=== PATIENT | female | born 1935 | race Caucasian/White ===

== ENCOUNTER 2018-04-03 19:03 | Emergency (ER) | payer BC ==
--- NOTE | 2018-04-03 19:23 | Emergency Department Record ---
History of Present Illness - General Chief Complaint: Fall Injury Stated Complaint: FALL Time Seen by Provider: 04/03/18 19:17 Source: Patient Mode of Arrival: Wheelchair Limitations: No limitations - History of Present Illness Initial Comments: 82 yo female presents to ED for evaluation of pain to the left elbow, left knee , and left upper quadrant.left lower ribs following a trip an fall in a friend' s basement. Patient reports that she was able to stand and ambulate on her own , denies injury to the head, neck, or use of anticoagulation medications. Patient denies focal weakness or numbness symptoms on examination. MD Complaint: Fall Onset/Timin -: Hour(s) Fall From: Standing When Fall Occurred: 1 hour [employer] Fall Witnessed: No Place Fall Occurred: Home Loss of Consciousness: None Prolonged Down Time?: No Symptoms Prior to Fall: None Location - Extremities: Left: Elbow, Knee Severity: Moderate Quality: Aching Context: Tripped/slipped Associated Symptoms: Denies - [place] Coma Scale Eye Response: (4) Open spontaneously Motor Response: (6) Obeys commands Verbal Response: (5) Oriented Krystal Total: 15 - Related Data Home Medications Medication Instructions Recorded Confirmed Last Taken Alendronate Sodium 70 mg PO WEEKLY 04/03/18 04/03/18 Unknown Benazepril/Hydrochlorothiazide 1 each PO DAILY 04/03/18 04/03/18 Unknown [Benazepril-Hctz 10-12.5 mg Tab] Beta-Carotene(A)-Vits C,E/Mins 1 each PO DAILY 04/03/18 04/03/18 Unknown [Vision Vitamins] Calcium Carb/D3/Magnesium/Zinc 1 each PO DAILY 04/03/18 04/03/18 Unknown [Morgan Mag Zinc + D Tablet] Insulin Glargine,Hum.rec.anlog 68 unit SQ QPM 04/03/18 04/03/18 Unknown [Lantus] Isosorbide Mononitrate [Imdur] 30 mg PO DAILY 04/03/18 04/03/18 Unknown Levothyroxine Sodium 50 mcg PO DAILY 04/03/18 04/03/18 Unknown Losartan Potassium [Cozaar] 25 mg PO DAILY 04/03/18 04/03/18 Unknown Lovastatin [Altoprev] 40 mg PO QPM 04/03/18 04/03/18 Unknown Metformin HCl [Glucophage] 850 mg PO TID 04/03/18 04/03/18 Unknown Metoprolol Succinate [Toprol Xl] 25 mg PO DAILY 04/03/18 04/03/18 Unknown Potassium Bicarbonate/Cit AC 25 meq PO DAILY 04/03/18 04/03/18 Unknown [K-Lyte] Quinine Sulfate 324 mg PO QPM 04/03/18 04/03/18 Unknown Saliva Substitute Combo No.9 1,000 ml MM ASDIR 04/03/18 04/03/18 Unknown [Biotene] Previous Rx's Medication Instructions Recorded Hydrocodone/Acetaminophen [[place] 1 each PO Q6H PRN #10 tablet 04/03/18 5-325 Tablet] Allergies Allergy/AdvReac Type Severity Reaction Status Date / Time acetaminophen [From Endocet] Allergy PT UNSURE Verified 04/03/18 19:17 OF REACTION codeine Allergy PT UNSURE Verified 04/03/18 19:17 OF REACTION fenoprofen [From Nalfon] Allergy PT UNSURE Verified 04/03/18 19:17 OF REACTION hydrocodone [From Vicodin] Allergy PT UNSURE Verified 04/03/18 19:17 OF REACTION hydromorphone [From Dilaudid] Allergy PT UNSURE Verified 04/03/18 19:17 OF REACTION morphine Allergy PT UNSURE Verified 04/03/18 19:17 OF REACTION oxycodone [From Endocet] Allergy PT UNSURE Verified 04/03/18 19:17 OF REACTION pentazocine [From Talwin] Allergy PT UNSURE Verified 04/03/18 19:17 OF REACTION sulindac [From [place]] Allergy PT UNSURE Verified 04/03/18 19:17 OF REACTION Travel Screening - Travel/Exposure Within Last 30 Days Have you traveled within the last 30 days?: No - Travel/Exposure Within Last Year Have you traveled outside the [place] in the last year?: No - Additonal Travel Details Have you been exposed to anyone with a communicable illness?: No - Travel Symptoms Symptom Screening: None Review of Systems Constitutional: Denies: Chills, Fever, Malaise, Night sweats Eyes: Denies: Eye discharge, Eye pain ENT: Denies: Congestion, Ear pain, Epistaxis Respiratory: Denies: Cough, Dyspnea Cardiovascular: Denies: Chest pain, Dyspnea on exertion Endocrine: Denies: Fatigue, Heat or cold intolerance Gastrointestinal: Reports: Abdominal pain. Denies: Nausea, Vomiting Genitourinary: Denies: Incontinence, Retention Musculoskeletal: Reports: Arthralgia. Denies: Back pain, Gout, Joint swelling Skin: Reports: Bruising. Denies: Change in color Neurological: Denies: Abnormal gait, Confusion, Headache, Seizure Psychiatric: Denies: Anxiety Hematological/Lymphatic: Denies: Anemia, Blood Clots Past Medical History - SOCIAL HISTORY Smoking Status: Former smoker Alcohol Use: None Drug Use: None - RESPIRATORY Hx Respiratory Disorders: No - CARDIOVASCULAR Hx Cardio Disorders: Yes Comment:: "angina" - NEURO Hx Neuro Disorders: No - GI Hx GI Disorders: No - Hx Genitourinary Disorders: No - ENDOCRINE Hx Endocrine Disorders: Yes Hx Diabetes: Yes - MUSCULOSKELETAL Hx Musculoskeletal Disorders: No - PSYCH Hx Psych Problems: No - HEMATOLOGY/ONCOLOGY Hx Hematology/Oncology Disorders: Yes Hx Cancer: Yes (facial) Hx Chemotherapy: No Hx Radiation Therapy: No Comment:: macular degeneration Family Medical History Any Significant Family History?: No Physical Exam - General General Appearance: Alert, Oriented x3, Cooperative, Moderate distress Limitations: No limitations - Head Head exam: Atraumatic, Normocephalic, Normal inspection Head exam detail: negative: Abrasion, Contusion, Ayala's sign, General tenderness, Hematoma, Laceration - Eye Eye exam: Normal appearance. negative: Conjunctival injection, Periorbital swelling, Periorbital tenderness, Scleral icterus - ENT Ear exam: negative: Auricular hematoma, Auricular trauma Nasal Exam: negative: Active bleeding, Discharge, Dried blood, Foreign body Mouth exam: negative: Drooling, Laceration, Muffled voice, Tongue elevation - Neck Neck exam: Normal inspection. negative: Meningismus, Tenderness - Respiratory Respiratory exam: Normal lung sounds bilaterally, Chest wall tenderness (Left lower anterior ribs). negative: Rales, Respiratory distress, Rhonchi, Stridor - Cardiovascular Cardiovascular Exam: Regular rate, Normal rhythm, Systolic murmur - GI/Abdominal GI/Abdominal exam: Soft, Tenderness (TTP over the left upper quadrant on examination, no rebound, no guarding present.). negative: Rebound, Rigid - Rectal Rectal exam: Deferred - exam: Deferred - Extremities Extremities exam: Full ROM, Tenderness, Other (Mild abrasions over the left elbow, left knee with FROM actively present. No pain over the wrist or shoulder , over monico foot or hip on examination. Strong distal radial pulse. Compartments of the forearm and lower extremity are soft.). negative: Calf tenderness, Pedal edema - Back Back exam: Denies: CVA tenderness (R), CVA tenderness (L) - Neurological Neurological exam: Alert, Normal gait, Oriented X3 - Psychiatric Psychiatric exam: Normal affect, Normal mood - Skin Skin exam: Abrasion. negative: Normal color Type of lesion: abrasion Course Vital Signs 04/03/18 04/03/18 19:04 19:05 Temperature 97.6 F 97.6 F Pulse Rate [ 73 Pulse Ox Probe] Respiratory 20 20 Rate Blood Pressure 196/80 [Right Arm] Pulse Ox 98 98 - Reevaluation(s) Reevaluation #1: 04/03/18 20:24 Left Knee: Small joint effusion, DJD, no fracture Left Elbow: Possible radial head fracture CT Chest: Anterior rib irregularities bilaterally, cannot exclude non-displaced rib fracture 2-3 mm nodules lungs bilaterally, recommend 12 month follow-up. Aortic valve calcification Patient was updated on all results, patient does report pain to the left elbow near the radial head with palpation. Will place in splint with instructions to follow-up with her orthopedist (Dr. Christine) next week. Will prescribe [place] as directed for pain symptoms as well. Patient was updated on all results, appears stable for discharge at this time. Disposition Disposition: Discharge Clinical Impression: Radial head fracture Qualifiers: Encounter type: initial encounter Fracture type: closed Fracture alignment: nondisplaced Laterality: left Qualified Code(s): S52.125A - Nondisplaced fracture of head of left radius, initial encounter for closed fracture Contusion of rib on left side Qualifiers: Encounter type: initial encounter Qualified Code(s): S20.212A - Contusion of left front wall of thorax, initial encounter Knee contusion Qualifiers: Encounter type: initial encounter Laterality: left Qualified Code(s): S80.02XA - Contusion of left knee, initial encounter Disposition: Home, Self-Care Condition: (2) Stable Instructions: Elbow Fracture (ED) Additional Instructions: Return to ED if your symptoms worsen or if you have any concerns. [place] as directed. Follow-up with Dr. Christine in 3-5 days as directed. Prescriptions: Hydrocodone/Acetaminophen [[place] 5-325 Tablet] 1 each PO Q6H PRN #10 tablet PRN Reason: Pain - Moderate (5-7) Referrals: LARRY CHRISTINE M.D. [MEDICAL DOCTOR] - Forms: Patient Portal Access Time of Disposition: 20:42 Quality - Quality Measures Quality Measures: N/A - Blood Pressure Screening Does Patient Have Any of the Following: No Blood Pressure Classification: Pre-Hypertensive BP Reading Systolic Measurement: 196 Diastolic Measurement: 80 Screening for High Blood Pressure: < Pre-Hypertensive BP, F/U Documented > [ [id number]] Pre-Hypertensive Follow-up Interventions: Referral to alternative/primary care provider.
[2018-04-03] MEDS ORDERED: HYDROCODONE/APAP 5/325MG TABLET PO ONE (20:42)
--- NOTE | 2018-04-05 23:31 | RADIOLOGY REPORT ---
EXAM: KNEE, LEFT 3 VIEWS HISTORY: FALL. COMPARISON: None. FINDINGS: Three views of the left knee show intact bony structures without evidence of fracture or dislocation. There is a small joint effusion. Vascular calcifications and chondrocalcinosis is seen. IMPRESSION: NO EVIDENCE OF FRACTURE OF THE LEFT KNEE. [facility]BER: [id number] [facility]
--- NOTE | 2018-04-05 23:33 | RADIOLOGY REPORT ---
EXAM: ELBOW, LEFT 3 VIEWS HISTORY: FALL. COMPARISON: None. ENCOUNTER: Initial. FINDINGS: Three views of the left elbow show a tiny density adjacent to the radial head, which may be a tiny avulsion fracture. There is no dislocation of the joint. Bone are osteopenic. No joint effusion. IMPRESSION: POSSIBLE TINY FRACTURE OF THE RADIAL HEAD. RECOMMEND FOLLOW-UP RADIOGRAPHS IN 2 TO 4 WEEKS. JOB NUMBER: [id number] [facility]
--- NOTE | 2018-04-05 23:45 | CT SCAN REPORT ---
EXAM: CT SCAN CHEST WO CONTRAST HISTORY: FALL. TECHNIQUE: Helical CT scan of the thorax obtained without intravenous contrast. COMPARISON: None. FINDINGS: Small patchy areas of ground-glass density in the anterior right middle lobe and superior segment of the left lower lobe. Mild emphysematous changes are present. Several tiny nodules measuring 2 to 3 mm are present bilaterally. No mediastinal hematoma or adenopathy. Severe aortic valvular calcification. Severe coronary artery and mitral annular calcification. The left ventricle appears hypertrophied. No aortic aneurysm. Limited images of the upper abdomen show no significant abnormality. Bony structures show slight irregularity of the lower anterior ribs without fracture line, likely from previous injury. No acute fractures are identified. There are surgical clips in the anterior abdominal wall of the right upper quadrant. IMPRESSION: 1. NO EVIDENCE OF INJURY IN THE THORAX. PROBABLE OLD ANTERIOR LOWER RIB FRACTURES. 2. SEVERE AORTIC VALVULAR CALCIFICATION. 3. TINY BILATERAL PULMONARY NODULES. CONSIDER FOLLOW-UP IN 12 MONTHS. 4. MINIMAL OPACITIES IN THE ANTERIOR RIGHT UPPER LOBE AND LEFT LOWER LOBE, WHICH MAY BE SCARRING VS. CONTUSION. JOB NUMBER: [id number] [facility]
== END 2018-04-03 21:18 | disposition home or self-care (01) ==
LOC: ER 19:03
DX: S52.125A Nondisplaced fracture of head of left radius, initial encounter for closed fracture (principal); S20.212A Contusion of left front wall of thorax, initial encounter; S80.02XA Contusion of left knee, initial encounter; E11.9 Type 2 diabetes mellitus without complications; Z79.4 Long term (current) use of insulin; Z87.891 Personal history of nicotine dependence; W01.10XA Fall on same level from slipping, tripping and stumbling with subsequent striking against unspecified object, initial encounter; Y92.008 Other place in unspecified non-institutional (private) residence as the place of occurrence of the external cause
CPT/HCPCS: 71250; 99283; 99284